=== PATIENT | male | born 1990 | race Hispanic/Latino ===

== ENCOUNTER 2018-05-17 09:29 | Emergency (ER) | payer OTHER ==
[2018-05-17] MEDS ORDERED: HYDROcodone/Acetaminophen 10/325 mg Tablet ONE (09:43)
--- NOTE | 2018-05-17 10:23 | RAD ---
LEFT FOOT THREE VIEWS: History: Left foot injury. FINDINGS: Lisfranc joint alignment is anatomic. Plantar arch is maintained. No acute fracture, dislocation, or aggressive osseous erosions. IMPRESSION: No acute osseous abnormalities are demonstrated. POS: [facility]
== END 2018-05-17 11:04 | disposition home or self-care (01) ==
LOC: ERS 09:29
DX: S97.82XA Crushing injury of left foot, initial encounter (principal); F17.210 Nicotine dependence, cigarettes, uncomplicated; K58.9 Irritable bowel syndrome, unspecified; W20.8XXA Other cause of strike by thrown, projected or falling object, initial encounter